=== PATIENT | male | born 1980 | race African-American/Black ===

== ENCOUNTER 2024-02-29 07:50 | Emergency (ER) | payer BC ==
[~2024-02-29] VITALS: Ht 188 cm; Wt 80.3 kg
[2024-02-29] MEDS ORDERED: DOXY100T2 PO (08:16)
[2024-02-29 08:37] VITALS: BP 141/78; TEMP 98.2; O2SAT 97
== END 2024-02-29 10:09 | disposition home or self-care (01) ==
LOC: ER 07:50
DX: R22.41 Localized swelling, mass and lump, right lower limb (principal); L08.9 Local infection of the skin and subcutaneous tissue, unspecified; Z79.2 Long term (current) use of antibiotics
CPT/HCPCS: A4606; A4663